=== PATIENT | female | born 1965 | race Caucasian/White ===

== ENCOUNTER → 2019-11-10 11:11 | Outpatient (BNVA) | payer OTHER, SELFPAY | PROVIDERS: PCP Nurse Practitioner; Visit Provider Internal Medicine Rheumatology | DX: M05.9 Rheumatoid arthritis with rheumatoid factor, unspecified (principal); Z11.59 Encounter for screening for other viral diseases; Z79.899 Other long term (current) drug therapy; Z11.1 Encounter for screening for respiratory tuberculosis; J44.9 Chronic obstructive pulmonary disease, unspecified; Z72.89 Other problems related to lifestyle | CPT/HCPCS: 99204 ==

== ENCOUNTER 2019-11-10 12:53 | Outpatient (CLI) | payer OTHER, SELFPAY ==
--- NOTE | 2019-11-10 12:58 | XR_ITS ---
WS: [id number] LEFT FOOT: 3 VIEW(S) TECHNIQUE: AP, oblique and lateral. HISTORY: rheumatoid arthritis COMPARISON: None available. No acute fracture or dislocation. Normal tarsal/metatarsal alignment. Small erosions at the first IP joint. No soft tissue abnormality or bone destruction. Moderate size calcaneal spur and enthesopathy at the Achilles tendon attachment. XR/XR foot LT min 3V* [id number] IMPRESSION: 1. Erosions at the first IP joint. Not a typical distribution for rheumatoid. 2. Moderate size calcaneal spur.
--- NOTE | 2019-11-10 12:58 | XR_ITS ---
WS: [id number] RIGHT FOOT: 3 VIEW(S) TECHNIQUE: AP, oblique and lateral. HISTORY: rheumatoid arthritis COMPARISON: None available. No acute fracture or dislocation. Normal tarsal/metatarsal alignment. No soft tissue abnormality or bone destruction. Moderate size calcaneal spur. XR/XR foot RT min 3V* [id number] IMPRESSION: 1. No erosions. 2. Moderate calcaneal spur.
--- NOTE | 2019-11-10 12:58 | XR_ITS ---
WS: [id number] RIGHT HAND: 3 VIEW(S) TECHNIQUE: PA, oblique and lateral. HISTORY: rheumatoid arthritis COMPARISON: None available. No acute fracture or dislocation. No soft tissue or bone abnormality. XR/XR hand RT min 3V* [id number] IMPRESSION: Normal RIGHT hand.
--- NOTE | 2019-11-10 12:58 | XR_ITS ---
WS: [id number] CHEST 2 VIEWS HISTORY: rheumatoid arthritis COMPARISON: None available. Lungs: Clear with no abnormality. No pleural effusion or pneumothorax. Cardiac size: Normal. Mediastinum/Aorta: Normal mediastinum. Bones: Normal. XR/XR chest 2V* [id number] IMPRESSION: Normal chest.
--- NOTE | 2019-11-10 12:58 | XR_ITS ---
WS: [id number] LEFT HAND: 3 VIEW(S) TECHNIQUE: PA, oblique and lateral. HISTORY: rheumatoid arthritis COMPARISON: None available. No acute fracture or dislocation. No soft tissue or bone abnormality. Early erosions noted at the distal ulna. No erosion at the metacarpal heads. XR/XR hand LT min 3V* [id number] IMPRESSION: 1. Early erosion at the distal ulna can be seen with rheumatoid arthritis. 2. No metacarpal head erosions.
== END 2019-11-10 12:54 | disposition home or self-care (01) ==
LOC: RADWPI 12:57
PROVIDERS: PCP Nurse Practitioner; Visit Provider Internal Medicine Rheumatology
DX: M05.9 Rheumatoid arthritis with rheumatoid factor, unspecified (principal); Z11.59 Encounter for screening for other viral diseases; Z79.899 Other long term (current) drug therapy; Z11.1 Encounter for screening for respiratory tuberculosis; J44.9 Chronic obstructive pulmonary disease, unspecified; Z72.89 Other problems related to lifestyle
CPT/HCPCS: 36415; 71046; 73130; 73630; 82306; 86480; 86704; 86803; 87340

== ENCOUNTER → 2019-12-13 16:04 | Outpatient (BNVA) | payer OTHER, SELFPAY | PROVIDERS: PCP Nurse Practitioner; Visit Provider Internal Medicine Rheumatology | DX: Z79.899 Other long term (current) drug therapy (principal) | CPT/HCPCS: 36415; 80076; 82565; 85025; 85651; 86140 ==

== ENCOUNTER 2020-01-30 10:40 | Outpatient (CLI) | payer OTHER, SELFPAY ==
--- NOTE | 2020-01-30 10:46 | MM_ITS ---
WS: [id number] BILATERAL DIGITAL SCREENING MAMMOGRAPHY WITH CAD CLINICAL INFORMATION: SCREENING HISTORY: Screening mammogram. No current complaints. COMPARISON: January 06, 2015 TECHNIQUE: Bilateral CC and MLO views. FINDINGS: Scattered fibroglandular densities bilaterally. No suspicious focal mass, asymmetry, calcifications, or architectural distortion. No evidence of malignancy. A few stable intramammary lymph nodes. MM/[place] [id number] IMPRESSION: BI-RADS: 2-Benign FOLLOW UP: 1 Year Follow-up Recommend return to annual screening mammography.
== END 2020-01-30 10:41 | disposition home or self-care (01) ==
LOC: RADSHAW 10:44
PROVIDERS: PCP Nurse Practitioner; Visit Provider Nurse Practitioner
DX: M05.9 Rheumatoid arthritis with rheumatoid factor, unspecified (principal); Z79.899 Other long term (current) drug therapy; Z71.89 Other specified counseling
CPT/HCPCS: 36415; 77067; 80076; 82565; 85025; 85651; 86140

== ENCOUNTER → 2020-02-20 16:11 | Outpatient (BNVA) | payer OTHER, SELFPAY | PROVIDERS: PCP Nurse Practitioner; Visit Provider Internal Medicine Rheumatology | DX: M05.79 Rheumatoid arthritis with rheumatoid factor of multiple sites without organ or systems involvement (principal); Z79.899 Other long term (current) drug therapy | CPT/HCPCS: 99214 ==

== ENCOUNTER → 2020-04-18 15:37 | Outpatient (BNVA) | payer OTHER, SELFPAY | PROVIDERS: PCP Nurse Practitioner; Visit Provider Internal Medicine Rheumatology | DX: Z79.899 Other long term (current) drug therapy (principal) | CPT/HCPCS: 36415; 80076; 82565; 85025; 85651; 86140 ==

== ENCOUNTER → 2020-05-22 16:16 | Outpatient (BNVA) | payer OTHER, SELFPAY | PROVIDERS: PCP Nurse Practitioner; Visit Provider Internal Medicine Rheumatology | DX: M05.79 Rheumatoid arthritis with rheumatoid factor of multiple sites without organ or systems involvement (principal); Z79.899 Other long term (current) drug therapy; J44.9 Chronic obstructive pulmonary disease, unspecified; Z79.52 Long term (current) use of systemic steroids | CPT/HCPCS: 99214 ==

== ENCOUNTER → 2020-09-20 16:06 | Outpatient (BNVA) | payer OTHER, SELFPAY | PROVIDERS: PCP Nurse Practitioner; Visit Provider Internal Medicine Rheumatology | DX: Z79.899 Other long term (current) drug therapy (principal); M05.79 Rheumatoid arthritis with rheumatoid factor of multiple sites without organ or systems involvement | CPT/HCPCS: 36415; 80076; 82565; 85025; 85651; 86140 ==

== ENCOUNTER → 2020-10-24 16:06 | Outpatient (BNVA) | payer OTHER, SELFPAY | PROVIDERS: PCP Nurse Practitioner; Visit Provider Internal Medicine Rheumatology | DX: M05.79 Rheumatoid arthritis with rheumatoid factor of multiple sites without organ or systems involvement (principal); Z79.899 Other long term (current) drug therapy | CPT/HCPCS: 99214 ==

== ENCOUNTER → 2021-02-19 13:01 | Outpatient (BNVA) | payer OTHER, SELFPAY | PROVIDERS: PCP Nurse Practitioner; Visit Provider Internal Medicine Rheumatology | DX: M05.79 Rheumatoid arthritis with rheumatoid factor of multiple sites without organ or systems involvement (principal); Z79.899 Other long term (current) drug therapy; J44.9 Chronic obstructive pulmonary disease, unspecified; Z71.89 Other specified counseling | CPT/HCPCS: 99214 ==

== ENCOUNTER 2021-05-15 11:05 | Outpatient (CLI) | payer OTHER, SELFPAY ==
--- NOTE | 2021-05-15 13:22 | PFTS_ITS ---
Date of Study:05/15/21 Date of Dictation: 05/15/2021 MECHANICS: Postbronchodilator forced vital capacity (FVC) is improved when compared to prebronchodilator. Pre-tbronchodilator forced expiratory volume in one second (FEV1) is moderately reduced but improved after bronchodilator. FEV1/FVC is normal. There is significant response to bronchodilators. FLOW VOLUME LOOP: Sloping of expiratory limb suggestive of airway obstruction . LUNG VOLUMES: Total lung capacity (TLC) is mildly reduced. Residual volume (RV) is normal. DIFFUSING CAPACITY FOR CARBON MONOXIDE: Normal . INTERPRETATION: The reduced FVC and moderately reduced FEV1 with normal FEV1/FVC ratio and reduced TLC-suggestive of restrictive lung disease.Given normal gas transfer and restriction on spirometry and lung volumes suggestive of extrathoracic restrictive lung disease like obesity or disorders of diaphragm. Given significant response to bronchodilators cannot rule out coexisting reversible obstructive airway disease as well. Clinical correlation recommended. MTDD
== END 2021-05-15 11:06 | disposition home or self-care (01) ==
LOC: RT 11:13
PROVIDERS: PCP Nurse Practitioner; Visit Provider Internal Medicine Pulmonary Disease
DX: J44.9 Chronic obstructive pulmonary disease, unspecified (principal)
CPT/HCPCS: 94060; 94618; 94726; 94729; J7611

== ENCOUNTER 2022-01-22 09:38 | Outpatient (CLI) | payer OTHER, SELFPAY ==
--- NOTE | 2022-01-22 09:51 | MM_ITS ---
WS: [id number] BILATERAL SCREENING DIGITAL BREAST TOMOSYNTHESIS MAMMOGRAM WITH CAD HISTORY: SCREENING COMPARISON: 01/30/2020, 02/02/2015 and 12/19/2014 Bilateral CC and MLO views with tomosynthesis and synthetic mammography submitted. Computer aided det ection analyzed. Breast composition: There are scattered areas of fibroglandular density. No suspicious masses, microc alcifications or architectural distortion. Long-term stability ovoid 12 mm mass in the anterior RIGHT breast. No new or suspicious masses or asymmetries. MM/[place] [id number] IMPRESSION: BI-RADS: 2-Benign FOLLOW UP: 1 Year Follow-up
== END 2022-01-22 09:39 | disposition home or self-care (01) ==
PROVIDERS: PCP Nurse Practitioner; Visit Provider Physician Assistant
DX: Z12.31 Encounter for screening mammogram for malignant neoplasm of breast (principal)
CPT/HCPCS: 77063; 77067